=== PATIENT | male | born 1965 | race Caucasian/White ===

== ENCOUNTER 2021-01-22 10:19 | Outpatient (RCR) | payer OTHER, SELFPAY ==
[2021-01-22] MEDS: ACETAMINOPHEN 325 MG TABLET 650 MG PO (13:26)
[2021-01-22] MEDS: FAMOTIDINE 20 MG TABLET PO (13:27)
[2021-01-22] MEDS: diphenhydrAMINE HCl CAP 25 MG CAPSULE PO (13:27)
[2021-01-22 13:28] VITALS: BP 99/68; PULSE 92; RESP 18; TEMP 36.6; O2SAT 95
[2021-01-22] MEDS: SODIUM CHLORIDE 0.9% IV 500 ML IV CONT (13:56)
[2021-01-22 15:13] VITALS: BP 93/62
--- NOTE | 2021-01-23 10:45 | PC.NURSE ---
Spoke to Mr Mitchell, and he is feeling better today than he did yesterday. He has no other questions at this time.
== END 2021-01-22 17:00 ==
LOC: AMCINF 10:19
PROVIDERS: PCP Family Medicine; Visit Provider Internal Medicine Hematology & Oncology
DX: U07.1 COVID-19 (principal)
CPT/HCPCS: 96360; A9270; J7040; M0243; Q0243

== ENCOUNTER 2023-05-14 11:31 | Outpatient (CLI) | payer OTHER, SELFPAY ==
--- NOTE | ~2023-05-14 | MR_ITS ---
EXAMINATION: MR cervical spine wo con DATE: 05/14/2023 12:26 INDICATION: Neck pain. Thoracic radiculitis. TECHNIQUE: Magnetic resonance imaging (MRI) of the cervical spine was performed without intravenous c ontrast. COMPARISON: Cervical spine MRI 02/11/2016 FINDINGS: There is kyphosis of cervical spine. There are changes of anterior fusion procedure at C6-C 7 with interbody devices and anterior plate and screws. There are changes of posterior fusion procedu re from C2 to T2. There is mild chronic anterior wedging of T1 vertebral body. There are bridging end plate osteophytes from C2 to C6 and from C7 to T2. There is ankylosis of the facet joints from C2 to at least T5. There is anterior subluxation of the C1 ring with respect to C2. There is chronic hypert rophic ankylosis of C1 and C2 anteriorly. There is ankylosis of the C1-C2 lateral masses bilaterally. There is mildly decreased disc height at C3-C4 and C5-C6. There is no neural foraminal stenosis. The re are laminectomies at C6 and C7. There is mild central canal stenosis at C1. The spinal cord signal intensity is normal. IMPRESSION: 1. Ankylosing spondylitis. 2. Anterior fusion procedure at C6-C7. Posterior fusion procedure from C2 to T2. 3. C1-C2 fusion with chronic anterior subluxation of C1 with respect to C2 resulting in mild central canal stenosis. Reviewed, dictated and finalized at location [facility]. IMPRESSION: 1. Ankylosing spondylitis. 2. Anterior fusion procedure at C6-C7. Posterior fusion procedure from C2 to T2 . 3. C1-C2 fusion with chronic anterior subluxation of C1 with respect to C2 resu lting in mild central canal stenosis.
== END 2023-05-14 11:32 ==
DX: M54.14 Radiculopathy, thoracic region (principal); M54.2 Cervicalgia; Z98.1 Arthrodesis status
CPT/HCPCS: 72141

== ENCOUNTER 2024-07-07 09:07 | Outpatient (CLI) | payer OTHER, SELFPAY ==
--- NOTE | ~2024-07-07 | XR_ITS ---
AP and lateral views of the cervical, thoracic, and lumbar spine CLINICAL HISTORY: Postlaminectomy syndrome FINDINGS: There is extensive cervicothoracic spinal fixation hardware posteriorly, extending from C2 through probably T2. There is anterior fusion from C6 to C7. No acute fracture identified. There are diffuse syndesmophytes throughout the visualized spine with associated ankylosis of the SI joints. Fi ndings are compatible with ankylosing spondylitis. No distinct scoliosis evident. Soft tissues are un remarkable. IMPRESSION: Ankylosing spondylitis with diffuse syndesmophytes throughout the spine, as well as ankylosis of the SI joints. Spinal fixation hardware at the cervicothoracic spine, as detailed above. Reviewed, dictated and finalized at location . IMPRESSION: Ankylosing spondylitis with diffuse syndesmophytes throughout the spine, as wel l as ankylosis of the SI joints. Spinal fixation hardware at the cervicothoracic spine, as detailed above.
--- NOTE | ~2024-07-07 | MR_ITS ---
MRI of the thoracic spine Clinical History: Back pain, postlaminectomy syndrome Technique: Axial T2-weighted and gradient images, and sagittal T1-weighted, T2-weighted, and STIR roverto ges were acquired. Findings: No acute fracture or subluxation identified. Posterior fusion hardware is present in the ce rvical spine extending to the T1 level. No suspicious bone marrow signal abnormality seen. There is s evere degenerative disc narrowing from T4 through T10. No disc bulge or herniation seen. No spinal canal stenosis or cord compression identified. Neural for nabor are preserved throughout the thoracic spine. No abnormal signal seen in the spinal cord. Paravertebral soft tissues are unremarkable. Impression: Posterior fusion of the cervical spine extending to T1 level. Advanced degenerative disc narrowing from T4 through T10. No spinal canal stenosis or cord compression. No neural foraminal narrowing. Reviewed, dictated and finalized at [facility]. Impression: Posterior fusion of the cervical spine extending to T1 level. Advanced degenerative disc narrowing from T4 through T10. No spinal canal stenosis or cord compression. No neural foraminal narrowing.
== END 2024-07-07 09:08 | disposition home or self-care (01) ==
PROVIDERS: PCP Family Medicine
DX: M96.1 Postlaminectomy syndrome, not elsewhere classified (principal); M45.0 Ankylosing spondylitis of multiple sites in spine; M54.14 Radiculopathy, thoracic region
CPT/HCPCS: 72082; 72146